=== PATIENT | female | born 1990 | race American Indian/Alaskan Native ===

== ENCOUNTER 2017-08-21 00:36 | Emergency (ER) | payer MEDICAID ==
[2017-08-21 02:19] LABS: Bacteria,Urine 4+ /HPF (Negative); Bilirubin,Urine NEG (Negative); Blood,Urine LG (Negative); Color,Urine Yellow (Yellow); Mucus,Urine 3+ /HPF; Urobilinogen,Urine < 2.0 mg/dL (<2.0)
[2017-08-21 02:20] LABS: RBC,Urine > 182.0 /HPF (0.0-6.0); WBC,Urine > 182.0 /HPF (0.0-6.0)
[2017-08-21 03:34] LABS: Basophils % (Auto) 0.5 % (0.0-1.8); Eosinophils # (Auto) 0.3 K/mm3 (0.0-0.4); Eosinophils % (Auto) 5.5 % (0.0-4.3); Hematocrit 36.5 % (30.3-42.9); Hemoglobin 12.6 gm/dl (10.1-14.3); Lymphocytes # (Auto) 2.4 K/mm3 (1.2-5.4); Lymphocytes % (Auto) 40.8 % (13.4-35.0); Mean Corpuscular HGB Conc 35 % (30-34); Mean Corpuscular Hemoglobin 31 pg (28-32); Mean Corpuscular Volume 90 fl (79-97); Monocytes # (Auto) 0.6 K/mm3 (0.0-0.8); Monocytes % (Auto) 9.9 % (0.0-7.3); Platelet Count 170 K/mm3 (140-440); Red Blood Count 4.08 M/mm3 (3.65-5.03); Red Cell Distribution Width 12.9 % (13.2-15.2)
[2017-08-21 03:54] LABS: Alanine Aminotransferase 14 units/L (7-56); Albumin 3.6 g/dL (3.9-5); BUN/Creatinine Ratio 20; Blood Urea Nitrogen 12 mg/dL (7-17); Calcium 8.5 mg/dL (8.4-10.2); Hemolysis Index 13
[2017-08-21] MEDS ORDERED: MORPHINE IV ONE (06:21)
[2017-08-21] MEDS ORDERED: ZOFRAN IV ONE (06:21)
[2017-08-21] MEDS ORDERED: LEVAQUIN PO ONE (06:26)
--- NOTE | 2017-08-21 06:26 | Emergency Department Report ---
HPI - General Chief Complaint: Abdominal Pain Time Seen by Provider: 08/21/17 06:09 - [facility] HPI: Room 8 The patient is a 27-year-old female presenting with a chief complaint of abdominal pain. The patient states her LMP was 07/12/2017. The patient states this morning she did not have vaginal bleeding until 2 days ago when she began passing blood clots vaginally. The patient states her vaginal bleeding has been intermittent. The patient states at the same time she developed pain in the right lower quadrant of her abdomen described as a pressure that is also intermittent. The patient states the pain does not radiate. The patient admits to dysuria for the past days. Patient denies nausea vomiting or diarrhea. Patient denies fever Location: [See above] Duration: [See above] Quality: Pressure, pain Severity: 10/05 Modifying factors: [see above] Context: [see above] Mode of transportation: [not driving] ED Past Medical Hx - Past Medical History Previous Medical History?: No - Surgical History Past Surgical History?: No - Family History Family history: no significant - Social History Smoking Status: Never Smoker Substance Use Type: None (denies illicit drug use) - Medications Home Medications: Home Medications Medication Instructions Recorded Confirmed Last Taken Type Ibuprofen [Motrin] 800 mg PO TID PRN #14 tablet 04/20/13 03/21/14 03/13/14 Rx Pnv,Calcium 72/Iron/Folic Acid 1 tab PO DAILY 03/22/14 03/22/14 03/21/14 History [Pnv Plus Multivit Tab] Ibuprofen [Motrin 800 MG tab] 800 mg PO Q8HR PRN #20 tablet 08/21/17 Unknown Rx Levofloxacin [Levaquin TAB] 500 mg PO QDAY #10 tablet 08/21/17 Unknown Rx traMADol [Ultram] 50 mg PO Q6HR PRN #14 tablet 08/21/17 Unknown Rx ED Review of Systems ROS: Stated complaint: ABD PAIN BLOOD CLOT Other details as noted in HPI Constitutional: denies: fever Gastrointestinal: abdominal pain. denies: nausea, vomiting, diarrhea Genitourinary: dysuria, abnormal menses Physical Exam - Physical Exam Vital Signs: Vital Signs 08/21/17 01:38 Temperature 98 F Pulse Rate 72 Respiratory 18 Rate Blood Pressure 114/68 O2 Sat by Pulse 99 Oximetry Physical Exam: GENERAL: The patient is well-developed well-nourished female lying on stretcher not appearing to be in acute distress. [] HEENT: Normocephalic. Atraumatic. Extraocular motions are intact. Patient has moist mucous membranes. NECK: Supple. Trachea midline CHEST/LUNGS: Clear to auscultation. There is no respiratory distress noted. HEART/CARDIOVASCULAR: Regular. There is no tachycardia. There is no gallop rub or murmur. ABDOMEN: Abdomen is soft, with tenderness to palpation in the right lower quadrant and right upper quadrant. There is no rebound or guarding. Patient has normal bowel sounds. There is no abdominal distention. SKIN: There is no rash. There is no edema. There is no diaphoresis. NEURO: The patient is awake, alert, and oriented. The patient is cooperative. The patient has normal speech MUSCULOSKELETAL: There is right CVA tenderness. There is no evidence of acute injury. ED Course Vital Signs 08/21/17 01:38 Temperature 98 F Pulse Rate 72 Respiratory 18 Rate Blood Pressure 114/68 O2 Sat by Pulse 99 Oximetry ED Medical Decision Making - Lab Data Result diagrams: 08/21/17 03:00 08/21/17 03:00 Laboratory Tests 08/21/17 08/21/17 08/21/17 03:00 03:00 03:00 WBC 6.0 RBC 4.08 Hgb 12.6 Hct 36.5 MCV 90 MCH 31 MCHC 35 H RDW 12.9 L Plt Count 170 Lymph % (Auto) 40.8 H Leslie % (Auto) 9.9 H Eos % (Auto) 5.5 H Baso % (Auto) 0.5 Lymph # 2.4 Leslie # 0.6 Eos # 0.3 Baso # 0.0 Seg Neutrophils % 43.3 Seg Neutrophils # 2.6 Sodium 136 L Potassium 3.7 Chloride 100.6 Carbon Dioxide 24 Anion Gap 15 BUN 12 Creatinine 0.6 L Estimated GFR > 60 BUN/Creatinine Ratio 20 Glucose 85 Calcium 8.5 Total Bilirubin 0.30 AST 17 ALT 14 Alkaline Phosphatase 83 Total Protein 7.0 Albumin 3.6 L Albumin/Globulin Ratio 1.1 HCG, Qual Negative Urine Color Urine Turbidity Urine pH Ur Specific [place] Urine Protein Urine Glucose (UA) Urine Ketones Urine Blood Urine Nitrite Urine Bilirubin Urine Urobilinogen Ur Leukocyte Esterase Urine WBC (Auto) Urine RBC (Auto) U Epithel Cells (Auto) Urine Bacteria (Auto) Urine Mucus 08/21/17 Unknown WBC RBC Hgb Hct MCV MCH MCHC RDW Plt Count Lymph % (Auto) Leslie % (Auto) Eos % (Auto) Baso % (Auto) Lymph # Leslie # Eos # Baso # Seg Neutrophils % Seg Neutrophils # Sodium Potassium Chloride Carbon Dioxide Anion Gap BUN Creatinine Estimated GFR BUN/Creatinine Ratio Glucose Calcium Total Bilirubin AST ALT Alkaline Phosphatase Total Protein Albumin Albumin/Globulin Ratio HCG, Qual Urine Color Yellow Urine Turbidity Cloudy Urine pH 6.0 Ur Specific [place] 1.027 Urine Protein 100 mg/dl Urine Glucose (UA) Neg Urine Ketones Neg Urine Blood Lg Urine Nitrite Pos Urine Bilirubin Neg Urine Urobilinogen < 2.0 Ur Leukocyte Esterase Sm Urine WBC (Auto) > 182.0 H Urine RBC (Auto) > 182.0 U Epithel Cells (Auto) 8.0 Urine Bacteria (Auto) 4+ Urine Mucus 3+ - Radiology Data Radiology results: report reviewed (CT abdomen and pelvis) CT abdomen and pelvis (read by radiologist)-normal appendix. There is no acute abnormality identified. - Differential Diagnosis missed , appendicitis, pyelonephritis, UTI Critical care attestation.: If time is entered above; I have spent that time in minutes in the direct care of this critically ill patient, excluding procedure time. ED Disposition Clinical Impression: Acute abdominal pain, Pyelonephritis Disposition: TO HOME OR SELFCARE Is pt being admited?: No Does the pt Need Aspirin: No Condition: Stable Instructions: Abdominal Pain (ED), Acute Pyelonephritis (ED) Additional Instructions: Return to the emergency department immediately should you develop worsening symptoms, fever, inability to tolerate food or liquid or any other concerns. Prescriptions: Ibuprofen [Motrin 800 MG tab] 800 mg PO Q8HR PRN #20 tablet PRN Reason: Pain Levofloxacin [Levaquin TAB] 500 mg PO QDAY #10 tablet traMADol [Ultram] 50 mg PO Q6HR PRN #14 tablet PRN Reason: Pain Referrals: PRIMARY CARE, [Primary Care Provider] - 3-5 Days KENDAL TAFOYA MD [Staff Physician] - 3-5 Days Time of Disposition: 08:36
--- NOTE | 2017-08-21 09:00 | Cat Scan Report ---
FINAL REPORT EXAM: CT ABDOMEN PELVIS W CON HISTORY: right lower quadrant abdominal pain TECHNIQUE: CT abdomen and pelvis performed. Images extend from diaphragm to pubic symphysis. 100 cc Omnipaque 300 IV was administered. Axial images and coronal and sagittal reformatted images were obtained. PRIORS: None. FINDINGS: The visualized aspects of the lung bases are clear. The visualized liver, spleen, pancreas, adrenal glands and kidneys demonstrate no significant abnormalities. There is no abdominal aortic aneurysm. There is no evidence of intestinal obstruction. The appendix is normal. There are no abnormal fluid collections seen. There is no evidence of focal or diffuse inflammatory abnormality. There is no free intraperitoneal air. The bladder is unremarkable. There is no abnormal pelvic mass or fluid collections seen. IMPRESSION: Normal appendix. There is no acute abnormality identified.
[2017-08-21 11:17] VITALS: BP 105/88
== END 2017-08-21 10:05 | disposition home or self-care (01) ==
LOC: ED 00:36
DX: N12 Tubulo-interstitial nephritis, not specified as acute or chronic (principal); R10.31 Right lower quadrant pain; R10.11 Right upper quadrant pain
CPT/HCPCS: 36415; 74177; 80053; 81001; 84703; 85025; 96374; 96375; 99284; J2270; J2405; Q9967

== ENCOUNTER 2021-04-14 20:38 | Emergency (ER) | payer MEDICAID ==
[2021-04-14] MEDS ORDERED: SODIUM CHLORIDE 0.9% 1000 ML 1,000 ML IV ONE (20:48)
[2021-04-14] MEDS ORDERED: FAMOTIDINE 20 MG/2 ML INJ IV ONE (20:48)
[2021-04-14] MEDS ORDERED: KETOROLAC 30 MG/1 ML INJ IV ONE (20:48)
[2021-04-14] MEDS ORDERED: ACETAMINOPHEN 500 MG TAB PO ONE (20:48)
[2021-04-14] MEDS ORDERED: ONDANSETRON 4 MG/2 ML INJ IV ONE (20:48)
[2021-04-14 21:13] LABS: Basophils % (Auto) 0.5 % (0.0-1.8); Eosinophils # (Auto) 0.1 K/mm3 (0.0-0.4); Eosinophils % (Auto) 2.4 % (0.0-4.3); Hematocrit 35.8 % (30.3-42.9); Lymphocytes # (Auto) 0.9 K/mm3 (1.2-5.4); Lymphocytes % (Auto) 16.4 % (13.4-35.0); Mean Corpuscular HGB Conc 34 % (30-34); Mean Corpuscular Volume 91 fl (79-97); Monocytes # (Auto) 0.6 K/mm3 (0.0-0.8); Platelet Count 173 K/mm3 (140-440); Red Blood Count 3.94 M/mm3 (3.65-5.03)
--- NOTE | 2021-04-14 21:22 | Emergency Department Report ---
- General Chief Complaint: Fever Stated Complaint: FEVER Source: patient Mode of arrival: Ambulatory Limitations: No Limitations - History of Present Illness Initial Comments: Patient is a 31-year-old -[place] female with a history of morbid obesity and asthma who presents to the ED with complaint of acute onset persistent nasal and sinus congestion, frontal sinus pressure and headache, sore throat, diffuse body aches and pains, nausea and vomiting, sore throat, diarrhea, and generalized weakness and fatigue for the last 2 weeks, worse in the last 5 days. Patient states that she was initially evaluated at [facility] but was only tested for COVID 19 which was negative, about a week ago. Patient stated that she was given a prescription for ibuprofen which she has been taking but in the last 5 days, her symptoms work got worse. Patient denies dizziness, fever and chills, vaginal bleeding, vaginal discharge, dysuria, urinary frequency and urgency, low back pain or change in vision. MD Complaint: fever, cough, sore throat, rhinorrhea, nasal congestion, sinus pain, other (Diffuse body aches and pains, nausea, vomiting, generalized weakness and fatigue) -: Sudden, week(s) (2) Severity: severe Severity scale (0 -10): 8 Quality: sharp, aching Consistency: constant Improves With: nothing Context: sick contacts Associated Symptoms: denies other symptoms, fever, chills, myalgias, headache, rhinorrhea, nasal congestion, sore throat, cough, nausea, vomiting, diarrhea. denies: diaphoresis, stiff neck, chest pain, shortness of breath, abdominal p ain, dysuria, rash, confusion, right sweats, epistaxis, hoarseness, ear pain Treatments Prior to Arrival: Ibuprofen - Related Data Home Medications Medication Instructions Recorded Confirmed Last Taken Pnv,Calcium 72/Iron/Folic Acid 1 tab PO DAILY 03/22/14 04/12/19 03/21/14 [Pnv Plus Multivit Tab] Previous Rx's Medication Instructions Recorded Last Taken Type Ibuprofen [Motrin] 800 mg PO TID PRN #14 tablet 04/20/13 03/13/14 Rx Ibuprofen [Motrin 800 MG tab] 800 mg PO Q8HR PRN #20 tablet 08/21/17 Unknown Rx levoFLOXacin [Levaquin TAB] 500 mg PO QDAY #10 tablet 08/21/17 Unknown Rx traMADoL [Ultram] 50 mg PO Q6HR PRN #14 tablet 08/21/17 Unknown Rx Acetaminophen/Codeine [Tylenol 1 tab PO Q4HR PRN #30 tablet 04/11/19 Unknown Rx /Codeine # 3 tab] Ibuprofen [Motrin 800 MG tab] 800 mg PO Q8HR PRN #30 tablet 04/11/19 Unknown Rx Acetaminophen [Tylenol] 500 mg PO Q6HR PRN #40 tablet 04/15/21 Unknown Rx Cetirizine HCl [Zyrtec 10mg tab] 10 mg PO DAILY #30 04/15/21 Unknown Rx Ondansetron [Zofran Odt] 4 mg PO Q8HR PRN #20 tab.rapdis 04/15/21 Unknown Rx cephALEXin [Keflex] 500 mg PO Q6HR #40 capsule 04/15/21 Unknown Rx Allergies Allergy/AdvReac Type Severity Reaction Status Date / Time No Known Allergies Allergy Verified 03/21/14 21:23 ED Review of Systems ROS: Stated complaint: FEVER Other details as noted in HPI Constitutional: chills, fever, malaise Eyes: denies: eye pain, eye discharge, vision change ENT: throat pain, congestion. denies: ear pain Respiratory: cough. denies: shortness of breath, wheezing Cardiovascular: denies: chest pain, palpitations, edema, syncope, paroxysmal nocturnal dyspnea Endocrine: no symptoms reported Gastrointestinal: nausea, vomiting, diarrhea. denies: abdominal pain Genitourinary: denies: urgency, dysuria, frequency, hematuria, discharge, abnormal menses, dyspareunia Musculoskeletal: back pain, arthralgia, myalgia. denies: joint swelling Skin: denies: rash, lesions Neurological: headache. denies: weakness, paresthesias Psychiatric: denies: anxiety, depression Hematological/Lymphatic: denies: easy bleeding, easy bruising ED Past Medical Hx - Past Medical History Hx Hypertension: No Hx Heart Attack/AMI: No Hx Congestive Heart Failure: No Hx Diabetes: No Hx Deep Vein Thrombosis: No Hx Liver Disease: No Hx Renal Disease: No Hx Sickle Cell Disease: No Hx Seizures: No Hx Asthma: Yes Hx COPD: No Hx HIV: No - Surgical History Hx Pacemaker: No Hx Internal Defibrillator: No - Social History Smoking Status: Never Smoker - Medications Home Medications: Home Medications Medication Instructions Recorded Confirmed Last Taken Type Ibuprofen [Motrin] 800 mg PO TID PRN #14 tablet 04/20/13 04/12/19 03/13/14 Rx Pnv,Calcium 72/Iron/Folic Acid 1 tab PO DAILY 03/22/14 04/12/19 03/21/14 History [Pnv Plus Multivit Tab] Ibuprofen [Motrin 800 MG tab] 800 mg PO Q8HR PRN #20 tablet 08/21/17 04/12/19 Unknown Rx levoFLOXacin [Levaquin TAB] 500 mg PO QDAY #10 tablet 08/21/17 04/12/19 Unknown Rx traMADoL [Ultram] 50 mg PO Q6HR PRN #14 tablet 08/21/17 04/12/19 Unknown Rx Acetaminophen/Codeine [Tylenol 1 tab PO Q4HR PRN #30 tablet 04/11/19 Unknown Rx /Codeine # 3 tab] Ibuprofen [Motrin 800 MG tab] 800 mg PO Q8HR PRN #30 tablet 04/11/19 Unknown Rx Acetaminophen [Tylenol] 500 mg PO Q6HR PRN #40 tablet 04/15/21 Unknown Rx Cetirizine HCl [Zyrtec 10mg tab] 10 mg PO DAILY #30 04/15/21 Unknown Rx Ondansetron [Zofran Odt] 4 mg PO Q8HR PRN #20 tab.rapdis 04/15/21 Unknown Rx cephALEXin [Keflex] 500 mg PO Q6HR #40 capsule 04/15/21 Unknown Rx ED Physical Exam - General Limitations: No Limitations General appearance: alert, in no apparent distress - Head Head exam: Present: atraumatic, normocephalic, normal inspection - Eye Eye exam: Present: normal appearance, PERRL, EOMI Pupils: Present: normal accommodation - ENT ENT exam: Present: mucous membranes moist, TM's normal bilaterally, normal external ear exam, other (Palpable frontal sinus tenderness; mildly erythematous oropharynx) - Neck Neck exam: Present: normal inspection, full ROM. Absent: tenderness - Respiratory Respiratory exam: Present: normal lung sounds bilaterally. Absent: respiratory distress, wheezes, rales, rhonchi, chest wall tenderness, accessory muscle use, decreased breath sounds - Cardiovascular Cardiovascular Exam: Present: normal rhythm, tachycardia, normal heart sounds. Absent: systolic murmur, diastolic murmur, rubs, gallop - GI/Abdominal GI/Abdominal exam: Present: soft, normal bowel sounds. Absent: distended, tenderness, guarding, rebound, hyperactive bowel sounds, hypoactive bowel sound s, organomegaly, mass, bruit - Extremities Exam Extremities exam: Present: normal inspection, full ROM, normal capillary refill. Absent: tenderness - Back Exam Back exam: Present: normal inspection, full ROM. Absent: tenderness, CVA tenderness (R), CVA tenderness (L), muscle spasm, paraspinal tenderness, vertebral tenderness - Neurological Exam Neurological exam: Present: alert, oriented X3, CN II-XII intact, normal gait, reflexes normal - Psychiatric Psychiatric exam: Present: normal affect, normal mood - Skin Skin exam: Present: warm, dry, intact, normal color. Absent: rash ED Course Vital Signs 04/14/21 20:39 Temperature 99.6 F Pulse Rate 117 H Respiratory 18 Rate O2 Sat by Pulse 98 Oximetry ED Medical Decision Making - Lab Data Result diagrams: 04/14/21 20:54 04/14/21 20:54 - Radiology Data Radiology results: report reviewed, image reviewed [address] [address] Ultrasound Report Signed Patient: DESTINEY DEL RIO MR#: [id number] : 1990 Acct:[id number] Age/Sex: 31 / F ADM Date: 04/14/21 Loc: ED Attending Dr: Ordering Physician: SULAIMAN SCHMITT Date of Service: 04/14/21 Procedure(s): US OB <= 14 weeks fetus Accession Number(s): [id number] cc: SULAIMAN SCHMITT ULTRASOUND OBSTETRIC INDICATION / CLINICAL INFORMATION: pain - . Pelvic pain/cramping. Serum hCG = 53,670 Clinical Gestational Age (GA) in weeks, days: 6, 5 TECHNIQUE: Transabdominal. COMPARISON: None available. FINDINGS: GESTATIONAL SAC: Well-defined oval shape and intrauterine in location. YOLK SAC: No significant abnormality. EMBRYO/FETUS: No significant abnormality. - [place]-Rump Length = 4.5 cm = 11, 2 weeks, days - Heart Rate, beats per minute (if present) = 178 UTERUS: Moderate-sized subchorionic hemorrhage along the lower margin of the gestational sac measuring 4.4 x 1.8 x 1.7 cm. Small subchorionic hemorrhage along the superior aspect of the gestational sac measuring 2.3 x 1.1 x 0.4 cm. ADNEXA: Small, mildly complex right ovarian cyst measuring 1.2 cm. Left ovary appears normal. FREE FLUID: None. ADDITIONAL FINDINGS: None. IMPRESSION: 1. Single, living intrauterine with estimated sonographic age of 11, 2 weeks, days. 2. 2 small to moderate subchorionic hemorrhages. Clinical and sonographic follow-up is recommended. Signer Name: Loreto Loredo MD Signed: 04/15/2021 12:09 AM Workstation Name: [id number] Transcribed By: ANA Dictated By: Ming Loredo MD Electronically Authenticated By: Ming Loredo MD Signed Date/Time: 04/15/218 DD/ TD/TT: [facility] [address] [place] [address] XRay Report Signed Patient: DESTINEY DEL RIO MR#: [id number] : 1990 Acct:[id number] Age/Sex: 31 / F ADM Date: 04/14/21 Loc: ED Attending Dr: Ordering Physician: SULAIMAN SCHMITT Date of Service: 04/14/21 Procedure(s): XR chest 1V ap Accession Number(s): [id number] cc: SULAIMAN SCHMITT Fluoro Time In Minutes: CHEST 1 VIEW 04/14/2021 9:07 PM INDICATION / CLINICAL INFORMATION: COUGH, FEVER, BODY ACHES. COMPARISON: None available. FINDINGS: SUPPORT DEVICES: None. HEART / MEDIASTINUM: No significant abnormality. LUNGS / PLEURA: No significant pulmonary or pleural abnormality. No pneumothorax. ADDITIONAL FINDINGS: No significant additional findings. IMPRESSION: 1. No acute findings. Signer Name: Hadley Herrera MD Signed: 04/14/2021 10:21 PM Workstation Name: [id number] Transcribed By: DB Dictated By: HADLEY HERRERA MD Electronically Authenticated By: HADLEY HERRERA MD Signed Date/Time: 04/14/212220 DD/ 20 TD/TT: - Medical Decision Making This is a 31-year-old -[place] female with a history of morbid obesity and asthma who presents to the ED with complaint of acute onset persistent nasal and sinus congestion, frontal sinus pressure and headache, sore throat, diffuse body aches and pains, nausea and vomiting, sore throat, diarrhea, and generalized weakness and fatigue for the last 2 weeks, worse in the last 5 days. Patient states that she was initially evaluated at [facility] but was only tested for COVID 19 which was negative, about a week ago. Patient stated that she was given a prescription for ibuprofen which she has been taking but in the last 5 days, her symptoms work got worse. In the ED, patient is alert and oriented x3 and is not in any distress. Laboratory results were reviewed and are [place] [address]. Urinalysis showed mild urinary tract infection. Chest x-ray showed no acute cardiopulmonary abnormalities or pneumonitis. Patient was treated for pain in the ED and also given normal saline 1 L IV bolus x1. Transvaginal ultrasound showed a single, living intrauterine with estimated sonographic age of 11, 2 weeks, days, and with a heart rate of 178 bpm. There was also 2 small to moderate subchorionic hemorrhages. Clinical and sonographic follow-up is recommended. On reevaluation, patient felt better, pain is well controlled medications. Patient will discharge home on medications including antibiotics for UTI. Patient was advised to return to the ED immediately if symptoms get worse. Patient was also advised to return to the ED immediately if symptoms get worse. - Differential Diagnosis URI; Pneumonia; UTI; Influenza; bronchitis; dehydration Critical care attestation.: If time is entered above; I have spent that time in minutes in the direct care of this critically ill patient, excluding procedure time. ED Disposition Clinical Impression: Acute upper respiratory infection, Acute urinary tract infection, Nausea and vomiting in adult patient Acute bronchitis Qualifiers: Bronchitis organism: other organism Qualified Code(s): J20.8 - Acute bronchitis due to other specified organisms Disposition: HOME / SELF CARE / HOMELESS Is pt being admited?: No Does the pt Need Aspirin: No Condition: Stable Instructions: Acute Bronchitis (ED), Nausea and Vomiting, Adult, [id number], Urinary Tract Infection, Adult, [id number]-[id number], Upper Respiratory Infection, Adult, Kmti-ze-Wzrj, Cough, Adult, [id number]-[id number], Acute Bronchitis, Adult, Aqyn-lz-Suhn Additional Instructions: All lab test results are reviewed and are all nonactionable except for urinalysis that showed urinary tract infection. Chest x-ray showed no acute cardiopulmonary abnormalities or pneumonitis. Transvaginal ultrasound showed a single live intrauterine of approximately 11 weeks and 2 days with a heart rate of 178 bpm. Therefore take medication with food, drink plenty fluids and follow-up with your [employer]IG[employer] physician in 7 to 10 days for reevaluation. Return to the ED immediately if symptoms get worse. Prescriptions: Acetaminophen [Tylenol] 500 mg PO Q6HR PRN #40 tablet PRN Reason: Pain , Severe (7-10) cephALEXin [Keflex] 500 mg PO Q6HR #40 capsule Ondansetron [Zofran Odt] 4 mg PO Q8HR PRN #20 tab.rapdis PRN Reason: Nausea Cetirizine HCl [Zyrtec 10mg tab] 10 mg PO DAILY #30 Referrals: STEWART LIVINGSTON MD [Staff Physician] - 3-5 Days Forms: Work/School Release Form(ED) Time of Disposition: 05:11 Print Language: KYRGYZ
[2021-04-14 21:28] LABS: Alanine Aminotransferase 11 units/L (7-56); Albumin 3.8 g/dL (3.9-5); Blood Urea Nitrogen 8 mg/dL (7-17); Hemolysis Index 5
[2021-04-14 21:57] LABS: BUN/Creatinine Ratio 16
--- NOTE | 2021-04-14 22:25 | XRay Report ---
CHEST 1 VIEW 04/14/2021 9:07 PM INDICATION / CLINICAL INFORMATION: COUGH, FEVER, BODY ACHES. COMPARISON: None available. FINDINGS: SUPPORT DEVICES: None. HEART / MEDIASTINUM: No significant abnormality. LUNGS / PLEURA: No significant pulmonary or pleural abnormality. No pneumothorax. ADDITIONAL FINDINGS: No significant additional findings. IMPRESSION: 1. No acute findings. Signer Name: Hadley Herrera MD Signed: 04/14/2021 10:21 PM Workstation Name: [id number]
--- NOTE | 2021-04-15 00:13 | Ultrasound Report ---
ULTRASOUND OBSTETRIC INDICATION / CLINICAL INFORMATION: pain - . Pelvic pain/cramping. Serum hCG = 53,670 Clinical Gestational Age (GA) in weeks, days: 6, 5 TECHNIQUE: Transabdominal. COMPARISON: None available. FINDINGS: GESTATIONAL SAC: Well-defined oval shape and intrauterine in location. YOLK SAC: No significant abnormality. EMBRYO/FETUS: No significant abnormality. - [place]-Rump Length = 4.5 cm = 11, 2 weeks, days - Heart Rate, beats per minute (if present) = 178 UTERUS: Moderate-sized subchorionic hemorrhage along the lower margin of the gestational sac measurin g 4.4 x 1.8 x 1.7 cm. Small subchorionic hemorrhage along the superior aspect of the gestational sac measuring 2.3 x 1.1 x 0.4 cm. ADNEXA: Small, mildly complex right ovarian cyst measuring 1.2 cm. Left ovary appears normal. FREE FLUID: None. ADDITIONAL FINDINGS: None. IMPRESSION: 1. Single, living intrauterine with estimated sonographic age of 11, 2 weeks, days. 2. 2 small to moderate subchorionic hemorrhages. Clinical and sonographic follow-up is recommended. Signer Name: Loreto Loredo MD Signed: 04/15/2021 12:09 AM Workstation Name: [id number]
[2021-04-15] MEDS ORDERED: SODIUM CHLORIDE 0.9% 1000 ML 1,000 ML IV ONE (02:45)
[2021-04-15] MEDS ORDERED: ACETAMINOPHEN 500 MG TAB PO ONE (02:45)
[2021-04-15] MEDS ORDERED: FAMOTIDINE 20 MG/2 ML INJ IV ONE (02:45)
[2021-04-15] MEDS ORDERED: KETOROLAC 30 MG/1 ML INJ IV ONE (02:45)
[2021-04-15] MEDS ORDERED: ONDANSETRON 4 MG/2 ML INJ IV ONE (02:45)
[2021-04-15 04:02] LABS: Bilirubin,Urine NEG (Negative); Blood,Urine NEG (Negative); Color,Urine Yellow (Yellow); Mucus,Urine 3+ /HPF; Protein,Urine <15 mg/dL mg/dL (Negative); Urobilinogen,Urine < 2.0 mg/dL (<2.0)
== END 2021-04-15 06:11 | disposition home or self-care (01) ==
LOC: ED 20:38
DX: O99.511 Diseases of the respiratory system complicating pregnancy, first trimester (principal); O23.41 Unspecified infection of urinary tract in pregnancy, first trimester; N39.0 Urinary tract infection, site not specified; O21.9 Vomiting of pregnancy, unspecified; J02.9 Acute pharyngitis, unspecified; J45.909 Unspecified asthma, uncomplicated; Z3A.11 11 weeks gestation of pregnancy
CPT/HCPCS: 36415; 71045; 76801; 80053; 81001; 84702; 84703; 85025; 87086; 96361; 96374; 96375; 99284; J2405; J3490; J7030; Q0162